=== PATIENT | female | born 1995 | race Caucasian/White ===

== ENCOUNTER 2020-07-06 16:39 | Emergency (ER) | payer BC ==
[~2020-07-06] VITALS: Wt 72.6 kg
[2020-07-06] MEDS ORDERED: ZOFRAN4 MG PO (18:43)
== END 2020-07-06 18:53 | disposition home or self-care (01) ==
LOC: ED 16:39
DX: G43.909 Migraine, unspecified, not intractable, without status migrainosus (principal)

== ENCOUNTER → 2020-07-06 | Outpatient (CLI) | payer BC ==
[~2020-07-06] MED LIST: ZOFRAN4 MG PO
== END | disposition home or self-care (01) ==
LOC: COVID19 13:47
PROVIDERS: ATTEND Internal Medicine
DX: Z20.828 Contact with and (suspected) exposure to other viral communicable diseases (principal)

== ENCOUNTER → 2023-11-13 | Outpatient (CLI) | payer OTHER, BC | END | disposition home or self-care (01) | LOC: RAD 09:43 | PROVIDERS: ATTEND Chiropractor | DX: M54.2 Cervicalgia (principal) ==